=== PATIENT | male | born 1935 | race Hispanic/Latino ===

== ENCOUNTER 2020-02-12 22:04 | Emergency (ER) | payer MEDICARE, OTHER ==
[~2020-02-12] VITALS: Ht 170.2 cm; Wt 95.3 kg
[2020-02-12] MEDS ORDERED: HYDRALAZINE HCL 20 MG/ML VIAL IV STA (22:24)
[2020-02-12] MEDS ORDERED: HYDRALAZINE HCL 20 MG/ML VIAL ONE (22:44)
[2020-02-12 23:09] LABS: BASOPHILS # (AUTO) 0.1 (0.0-0.1); BASOPHILS % 0.5 % (0.0-1.0); EOSINOPHILS # (AUTO) 0.3 (0.0-0.4); HEMATOCRIT 40.1 % (38.2-49.6); LYMPHOCYTES # (AUTO) 2.9 (1.0-3.2); LYMPHOCYTES % 29.2 % (18.0-39.1); MEAN CORPUSCULAR HEMOGLOBIN 29.4 pg (28-32); MEAN CORPUSCULAR HGB CONC 32.4 g/dL (31-35); MEAN CORPUSCULAR VOLUME 90.7 fL (81-99); MONOCYTES # (AUTO) 1.1 (0.2-0.8); MONOCYTES % 10.7 % (4.4-11.3); NEUTROPHILS # (AUTO) 5.5 (2.1-6.9); NEUTROPHILS % 56.2 % (38.7-80.0); PLATELET COUNT 218 x10e3/uL (140-360); RED BLOOD COUNT 4.42 x10e6/uL (4.3-5.7); RED CELL DISTRIBUTION WIDTH 14.5 % (11.7-14.4)
[2020-02-12] MEDS ORDERED: POTASSIUM CHLORIDE 20 MEQ TAB CR PO STA (23:10)
[2020-02-12] MEDS ORDERED: LASIX20 MG PO (23:15)
[2020-02-12] MEDS ORDERED: POTASSIUM CHLO20 ME1 PEG (23:16)
[2020-02-12] MEDS ORDERED: FUROSEMIDE INJ 10 MG/ML 4 ML VIAL ONE (23:21)
[2020-02-12] MEDS ORDERED: POTASSIUM CHLORIDE 20 MEQ TAB CR PO ONE (23:21)
[2020-02-13] MEDS ORDERED: FUROSEMIDE INJ 10 MG/ML 4 ML VIAL IV SCH (09:00)
== END 2020-02-12 23:50 | disposition home or self-care (01) ==
LOC: FSED 22:30
DX: I16.9 Hypertensive crisis, unspecified (principal); I50.9 Heart failure, unspecified; E87.6 Hypokalemia; I10 Essential (primary) hypertension; E11.65 Type 2 diabetes mellitus with hyperglycemia
CPT/HCPCS: 36415; 71045; 85025; 99284; J0360; J1940

== ENCOUNTER 2021-03-16 18:32 | Emergency (ER) | payer MEDICARE, OTHER ==
[~2021-03-16] VITALS: Ht 170.2 cm; Wt 95.3 kg
[~2021-03-16 18:32] MED LIST: ATORVASTATIN CA10 MG PO; AVAPRO150 MG PO; CLONIDINE HCL0.1 MG PO; DOXYCYCLINE HY100 MG PO; FUROSEMIDE40 MG PO; GABAPENTIN100 MG PO; HYDROCHLOROTHIA25 MG PO; K DUR10 MEQ PO; LASIX20 MG PO; LOSARTAN-HCTZ1 EAC2 PO; METFORMIN HCL500 M2 PO; METOPROLOL TART25 MG PO; METOPROLOL TART50 MG PO; NORCO 7.5-3251 EACH PO; NORVASC5 MG PO; OMEPRAZOLE20 MG PO; OMEPRAZOLE40 MG PO; POTASSIUM CHLO10 ME1 PO; POTASSIUM CHLO20 ME1 PEG; SIMVASTATIN20 MG PO; TOBRADEX EYE O3.5 GM OP; TYLENOL WITH C1 EACH PO
[2021-03-16 19:09] LABS: BASOPHILS # (AUTO) 0.1 (0.0-0.1); BASOPHILS % 0.6 % (0.0-1.0); EOSINOPHILS # (AUTO) 0.2 (0.0-0.4); EOSINOPHILS % 1.8 % (0.0-6.0); HEMATOCRIT 39.5 % (38.2-49.6); HEMOGLOBIN 12.6 g/dL (14.0-18.0); LYMPHOCYTES # (AUTO) 2.6 (1.0-3.2); LYMPHOCYTES % 30.5 % (18.0-39.1); MEAN CORPUSCULAR HEMOGLOBIN 29.4 pg (28-32); MEAN CORPUSCULAR HGB CONC 31.9 g/dL (31-35); MEAN CORPUSCULAR VOLUME 92.1 fL (81-99); MONOCYTES # (AUTO) 0.9 (0.2-0.8); MONOCYTES % 10.8 % (4.4-11.3); NEUTROPHILS # (AUTO) 4.8 (2.1-6.9); NEUTROPHILS % 56.1 % (38.7-80.0); PLATELET COUNT 223 x10e3/uL (140-360); RED BLOOD COUNT 4.29 x10e6/uL (4.3-5.7); RED CELL DISTRIBUTION WIDTH 14.3 % (11.7-14.4)
[2021-03-16 19:18] LABS: INR 1.09
[2021-03-16 19:19] LABS: PARTIAL THROMBOPLASTIN TIME 34.9 seconds (23.8-35.5)
[2021-03-16 19:26] LABS: ALBUMIN 3.8 g/dL (3.5-5.0); ANION GAP 13.9 mmol/L (8-16); CALCIUM 9.6 mg/dL (8.4-10.2); CREATININE, SERUM 1.32 mg/dL (0.72-1.25); POTASSIUM 3.9 mmol/L (3.5-5.1)
[2021-03-16 19:32] LABS: CREATINE KINASE MB 1.1 ng/mL (0-5.0)
[2021-03-16] MEDS ORDERED: AUGMENTIN 875-1 EACH PO (20:20)
[2021-03-16] MEDS ORDERED: IBUPROFEN400 MG PO (20:20)
[2021-03-16] MEDS ORDERED: ACYCLOVIR800 MG PO (20:24)
[2021-03-16] MEDS ORDERED: PREDNISONE50 MG PO (20:24)
== END 2021-03-16 20:44 | disposition home or self-care (01) ==
LOC: ER 18:41
DX: G51.0 Bell's palsy (principal); E11.65 Type 2 diabetes mellitus with hyperglycemia; I10 Essential (primary) hypertension; Z95.1 Presence of aortocoronary bypass graft
CPT/HCPCS: 36415; 70450; 80053; 82550; 82553; 82948; 84484; 85025; 85610; 85730; 93005; 99284

== ENCOUNTER 2021-05-14 17:47 | Emergency (ER) | payer MEDICARE, OTHER ==
[~2021-05-14] VITALS: Ht 170.2 cm; Wt 95.3 kg
[~2021-05-14 17:47] MED LIST changes: +ACYCLOVIR800 MG PO; +AUGMENTIN 875-1 EACH PO; +IBUPROFEN400 MG PO; +PREDNISONE50 MG PO
[2021-05-14] MEDS ORDERED: ACETAMINOPHEN 325 MG TAB PO ONE (18:15)
[2021-05-14 18:19] LABS: BASOPHILS % 0.2 % (0.0-1.0); HEMATOCRIT 40.9 % (38.2-49.6); HEMOGLOBIN 13.1 g/dL (14.0-18.0); LYMPHOCYTES # (AUTO) 0.9 (1.0-3.2); LYMPHOCYTES % 15.7 % (18.0-39.1); MEAN CORPUSCULAR HEMOGLOBIN 29.5 pg (28-32); MEAN CORPUSCULAR VOLUME 92.1 fL (81-99); MONOCYTES # (AUTO) 0.8 (0.2-0.8); MONOCYTES % 14.6 % (4.4-11.3); NEUTROPHILS # (AUTO) 3.9 (2.1-6.9); NEUTROPHILS % 69.3 % (38.7-80.0); PLATELET COUNT 141 x10e3/uL (140-360); RED BLOOD COUNT 4.44 x10e6/uL (4.3-5.7); RED CELL DISTRIBUTION WIDTH 14.5 % (11.7-14.4)
[2021-05-14 18:40] LABS: ALBUMIN 3.5 g/dL (3.5-5.0); ALBUMIN/GLOBULIN RATIO 0.9 (0.8-2.0); ANION GAP 15.6 mmol/L (8-16); CALCIUM 9.6 mg/dL (8.4-10.2); CREATININE, SERUM 1.59 mg/dL (0.72-1.25); POTASSIUM 3.6 mmol/L (3.5-5.1)
[2021-05-14 20:48] VITALS: BP 132/81
== END 2021-05-14 20:50 | disposition home or self-care (01) ==
LOC: ER 18:11
DX: U07.1 COVID-19 (principal); J12.82 Pneumonia due to coronavirus disease 2019; R06.02 Shortness of breath; R50.9 Fever, unspecified; E11.65 Type 2 diabetes mellitus with hyperglycemia; R19.7 Diarrhea, unspecified; I10 Essential (primary) hypertension; Z95.1 Presence of aortocoronary bypass graft
CPT/HCPCS: 36415; 71045; 80053; 85025; 99283